=== PATIENT | female | born 1975 | race Caucasian/White ===

== ENCOUNTER 2017-06-10 20:27 | Emergency (ER) | payer OTHER ==
[~2017-06-10] VITALS: Ht 167.6 cm; Wt 99.0 kg
[~2017-06-10 20:27] MED LIST: LO LTAB PO
[2017-06-10 20:40] VITALS: BP 148/99; PULSE 107; RESP 22; TEMP 99.6; O2SAT 98
[2017-06-10] MEDS ORDERED: IBUP1TAB5 PO (20:47)
[2017-06-10] MEDS ORDERED: guaiFENesin SOLUTION 200 MG/10 ML CUP PO ONE (22:15)
[2017-06-10] MEDS ORDERED: RESP: IPRATROPIUM 0.5 MG/2.5 ML NEB NEB ONE (22:15)
[2017-06-10] MEDS ORDERED: diphenhydrAMINE HCL ELIXIR 12.5 MG/5 ML CUP PO ONE (22:15)
--- NOTE | 2017-06-10 22:30 | PD ---
HPI Chief Complaint: Cold / Flu Symptoms Time Seen by Provider: 21:46 Travel History International Travel<30 days: No Contact w/Intl Traveler<30days: No Traveled to known affect area: No History of Present Illness HPI Patient is a 42-year-old female who is coming in complaining of shortness of breath cough fever for 9 days. She had been seen in another urgent care at [facility] and given a Z-Alex and cough medication. The fever continues the cough is getting worse and she comes to the ER complaining of wheezing shortness of breath coughing with every deep inspiration. The medication they gave her did not relieve her symptoms and to continue she's complaints of fever short of breath cough and general malaise. She denies any no medical allergies and she is has no significant medical history. 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 PFSH Past Medical History Bipolar Disorder: Yes (Per pt.) Anxiety: Yes Depression: Yes Heart Rhythm Problems: No Cancer: No Cardiac Catheterization: No Cardiovascular Problems: Yes (per pt she has hypertension) High Cholesterol: Yes Congestive Heart Failure: No Diabetes: No Diminished Hearing: No Gastrointestinal Disorders: No Genitourinary: No Headaches: No Heparin Induced Thrombocytopen: No Hypertension: Yes (Per pt.) Immune Disorder: No Implanted Vascular Access Dvce: No Musculoskeletal: No Neurologic: No Psychiatric: Yes Reproductive: No Respiratory: No Immunizations Current: Yes Seizures: No ?: Not : 8 Para: 5 Miscarriage: 0 : 3 Tubal Ligation: Yes (Dec 2006) Past Surgical History Coronary Artery Bypass Graft: No Gynecologic Surgery: Yes Other Surgery: Yes (TUBULIGATION Dec) Family History Family Myocardial Infarction: No Social History Alcohol Use: Yes (SOCIALLY WINE DRINKER ) Tobacco Use: No Substance Use: No (States [facility] 1-2 every couple of weeks.) Allergies-Medications (Allergen,Severity, Reaction): Coded Allergies: No Known Allergies (Verified Allergy, Unknown, 06/10/17) Verified from [facility] in [place], [place] [phone]. Reported Meds & Prescriptions Reported Meds & Active Scripts Active Ibuprofen 600 Mg Tab 600 Mg PO Q6H PRN Atrovent HFA 12.9 GM Inh (Ipratropium Rison) 17 Mcg/Actuation Aer 2 Puff INH Q6HR PRN Robitussin Cough Chest Congestion (Dextromethorphan-Guaifenesin) 10-200 Mg Cap 1 Cap PO Q6H PRN Diphenhydramine Liq (Diphenhydramine HCl) 12.5 Mg/5 Ml Elix 12.5 Mg PO Q6H PRN Reported Ibuprofen 400 Mg Tab 400 Mg PO Q6H PRN Review of Systems Except as stated in HPI: all other systems reviewed are Neg General / Constitutional: Positive: Fever HENT: Positive: Sore Throat Cardiovascular: Positive: Chest Pain or Discomfort Respiratory: Positive: Cough Physical Exam Narrative GENERAL: non toxic AOX3 no active coughing SKIN: Warm and dry. HEAD: Atraumatic. Normocephalic. EYES: Pupils equal and round. No scleral icterus. No injection or drainage. ENT: No nasal bleeding or discharge. Mucous membranes pink and moist. large tonsils NECK: Trachea midline. No JVD. CARDIOVASCULAR: Regular rate and rhythm. RESPIRATORY: No accessory muscle use. Clear to auscultation. Breath sounds equal bilaterally. coughing with deep inspiration on lung exam GASTROINTESTINAL: Abdomen soft, non-tender, nondistended. Hepatic and splenic margins not palpable. MUSCULOSKELETAL: Extremities without clubbing, cyanosis, or edema. No obvious deformities. NEUROLOGICAL: Awake and alert. No obvious cranial nerve deficits. Motor grossly within normal limits. Five out of 5 muscle strength in the arms and legs. Normal speech. PSYCHIATRIC: Appropriate mood and affect; insight and judgment normal. Data Data Last Documented VS Vital Signs Date Time Temp Pulse Resp B/P (MAP) Pulse Ox O2 Delivery O2 Flow Rate FiO2 06/11/17 01:11 87 16 119/70 (86) 100 06/10/17 23:19 98.8 Room Air Orders Orders Influenzae A/B Antigen (06/10/17 21:53) Group A Rapid Strep Screen (06/10/17 21:53) Ipratropium Neb (Atrovent Neb) (06/10/17 22:15) Diphenhydramine Liq (Benadryl Liq) (06/10/17 22:15) Guaifenesin Liq (Robitussin Liq) (06/10/17 22:15) Strep Culture (Group A) (06/10/17 22:10) Chest, Pa & Lat (06/11/17 ) Ibuprofen (Motrin) (06/11/17 00:15) Ed Discharge Order (06/11/17 01:14) MDM Medical Decision Making Medical Screen Exam Complete: Yes Emergency Medical Condition: Yes Differential Diagnosis viral infection vs strep pharyngitis vs influenza vs other Narrative Course feels much better after atrovent and benadryl. Diagnosis Primary Impression: Viral illness Scripts Ibuprofen (Ibuprofen) 600 Mg Tab 600 MG PO Q6H Y for Pain/Inflammation, #30 TAB 0 Refills Prov: Mac Rene MD 06/11/17 Ipratropium HFA 12.9 GM Inh (Atrovent HFA 12.9 GM Inh) 17 Mcg/Actuation Aer 2 PUFF INH Q6HR Y for SHORTNESS OF BREATH, #1 INHALER 0 Refills Prov: Mac Rene MD 06/11/17 Dextromethorphan-Guaifenesin (Robitussin Cough Chest Congestion) 10-200 Mg Cap 1 CAP PO Q6H Y for CHEST CONGESTION AND/OR COUGH, #15 CAP 0 Refills Prov: Mac Rene MD 06/11/17 Diphenhydramine Liq (Diphenhydramine Liq) 12.5 Mg/5 Ml Elix 12.5 MG PO Q6H Y for ALLERGIES, #1 BOTTLE 0 Refills Prov: Mac Rene MD 06/11/17 Mac Rene MD Jun 10, 2017 22:30
[2017-06-10 23:19] VITALS: BP 112/69; PULSE 78; RESP 16; TEMP 98.8; O2SAT 99
[2017-06-11] MEDS ORDERED: IBUPROFEN 600 MG TAB PO ONE (00:15)
[2017-06-11] MEDS ORDERED: DIPH12.5S PO (00:23)
[2017-06-11] MEDS ORDERED: DEXT1CAP5 PO (00:28)
[2017-06-11] MEDS ORDERED: IPRA17I INH (00:29)
[2017-06-11] MEDS ORDERED: IBUP-232 PO (00:30)
--- NOTE | 2017-06-11 01:10 | RADRPT ---
EXAM DATE/TIME: 06/11/2017 00:49 [facility] COMPARISON: No previous studies available for comparison. INDICATIONS : Cough and fever. MEDICAL HISTORY : None. SURGICAL HISTORY : Tubal ligation. ENCOUNTER: Initial ACUITY: 1 month PAIN SCORE: 0/10 LOCATION: Bilateral chest FINDINGS: PA and lateral views of the chest demonstrate the lungs to be symmetrically aerated without evidence of mass, infiltrate or effusion. The cardiomediastinal contours are unremarkable. Osseous structure s are intact. CONCLUSION: No acute cardiopulmonary disease. Tray Hart MD on June 11, 2017 at 1:08 Board Certified Radiologist. This report was verified electronically.
[2017-06-11 01:11] VITALS: BP 119/70
== END 2017-06-11 01:14 | disposition home or self-care (01) ==
LOC: PHED 20:27
DX: B34.9 Viral infection, unspecified (principal); I10 Essential (primary) hypertension; E78.00 Pure hypercholesterolemia, unspecified
CPT/HCPCS: 71046; 87081; 87804; 87880; 94664; 99284; J7644